=== PATIENT | female | born 1960 | race Caucasian/White ===

== ENCOUNTER 2021-10-07 09:25 | Emergency (ER) | payer OTHER, SELFPAY ==
[2021-10-07 09:30] VITALS: BP 167/86; PULSE 76; RESP 12; O2SAT 93
[2021-10-07 09:35] VITALS: BP 130/89; PULSE 69; RESP 18; TEMP 36.6; O2SAT 96; BMI 30.9
[2021-10-07 10:00] VITALS: BP 147/90; PULSE 73; RESP 14; O2SAT 93
--- NOTE | 2021-10-07 10:19 | ED_ITS ---
HPI - Chest Pain General Time Seen by Provider: 10:18 Date Seen: 10/07/21 Source: patient and RN notes reviewed Mode of arrival: ambulatory Limitations: no limitations History of Present Illness HPI narrative: Patient is a very pleasant 61-year-old female coming in with concern of possible underlying medical issues including but not limited to heart disease. She ad mits that she has really had diminished energy over the last 6 months an admit she was just ignoring it thinking it would go away. She works at [employer] in [place] unwell have been there for 20 years this fall, loves her job. Through talking to a customer she became concerned this might be heart disease or other issues. She notes when she walks remote the front of the store to the back of the store that she will does feel more tired, her leg muscles will feel tired and feels like she can not catch her breath at times. After getting up at home within a couple hours she is so tired that she feels like she could take a nap. She reports a heavy chest at times, like it is hard to try to catch her breath at times. She has had some nausea in the morning it increased burping a maybe a week or so or more, difficult for her to say if she really does not track or pay attention to her symptoms. On questioning there has been some dysphagia and again it is hard for her to tell. When it is there was there when it is not it is not. It will be with swallowing meat or breads. She has never had anything gets stuck. She admits that she has ongoing lightheadedness like she has always had a drinker to and she has not. She does have some occasional palpitations. She feels like she has heartburn but not reflux symptoms. She is on gabapentin in knows that that can make people feel lightheaded. She has a history of vertigo, has a history of a bad neck. She had colonoscopy at age 49 and has not had an update of this. She states she was given a Cologuard through the mail from [facility] and she thought it was weird that they would do this. She was worried that they may be giving out medical information or that this was wrong in through the test away. She was scheduled to see her physician 2 years ago at age 59 but it was a chance for her to have her grandson that day and that she went with her grandson. She admits her daughter is a nurse at cardiac unit in [facility] and has not told her daughter about this because she does not want her grandson to not come with her. Other than the irregular heartbeat she has never had any cardiac diagnosis. She has had no cough or cold symptoms, no vomiting with this. In the morning she will sometimes notes some blurry vision when she 1st gets up. She admits she uses cheaters. The blurry vision seems to be with close up, distant still seems to be fine. Reviewed with her that it is likely time to see Optometry. MD complaint: chest heaviness Pertinent past history: other (Reports workup for history of an irregular heartbeat) Onset (ago): unknown Timing of current episode: other (Difficult for the patient to quantify these things as noted above) Prior episodes: Yes Onset: during rest and during exertion Pain location: epigastric and subxiphoid Pain radiation: none Associated symptoms: nausea Treatment prior to arrival: none Related Data On Oral Contraceptives: No Home Medications Medication Instructions Recorded Confirmed escitalopram oxalate 10 mg tablet mg 10/07/21 gabapentin 300 mg capsule mg 10/07/21 Allergies Allergy/AdvReac Type Severity Reaction Status Date / Time trimethoprim Allergy Verified 10/07/21 09:34 Review of Systems Status of ROS Reports: 10 or more systems reviewed and unremarkable except as noted in History and below [facility] Medical History (Updated 10/07/21 @ 13:03 by Thu Mcginnis MD) Acute sensory neuropathy Asymptomatic PVCs Chronic pain Disc displacement, lumbar Generalized anxiety disorder Lichen sclerosus Obesity, unspecified Social History Smoking Status: Unknown if ever smoked Do you use any of these nicotine containing products: None How often do you have a drink containing alcohol: monthly or less How often do you have six or more drinks on one occasion: Never AUDIT-C Alcohol total score: 1 Non-prescribed substance use: denies use Exam Const Vital Signs, click to edit/add: Vital Signs - 24 hr 10/07/21 09:30 10/07/21 09:35 10/07/21 10:00 Temperature 97.8 F Pulse Rate [Left Pulse Oximeter] 76 69 73 Respiratory Rate 12 18 14 Blood Pressure [Left Upper Arm] 167/86 H 130/89 147/90 H Pulse Oximetry 93 96 93 10/07/21 10:30 10/07/21 11:30 10/07/21 13:28 Temperature Pulse Rate [Left Pulse Oximeter] 74 68 72 Respiratory Rate Blood Pressure [Left Upper Arm] 145/77 H 158/83 H 143/85 H Pulse Oximetry 95 97 95 Documenting provider has reviewed patient's vital signs: yes Common normals: no apparent distress, oriented x3, alert (Very pleasant and very talkative) and well nourished General appearance: cooperative, comfortable and well kempt HENMT Common normals: normocephalic, head/scalp atraumatic, hearing grossly normal bilaterally and external nose normal Head and scalp: normocephalic and atraumatic Face and sinus: normal facial exam Nose: external nose normal Mouth: oral and palatal mucosa normal Throat: posterior oropharynx normal Eye Common normals: PERRL, EOMs intact bilaterally, conjunctivae normal and no scleral icterus Conjunctiva: conjunctiva(e) normal Pupil: PERRL Neck & C-Spine Common normals: full ROM, no lymphadenopathy, supple, no meningeal signs, no JVD and thyroid normal Thyroid: thyroid normal Chest Common normals: inspection of chest normal and palpation of chest normal Resp Common normals: normal respiratory effort, no retractions, no use of accessory muscles and clear to auscultation bilaterally Auscultation: clear to auscultation bilaterally Cardio Common normals: no JVD, regular rate, regular rhythm, S1 normal heart sound, S2 normal heart sound, no gallops, no clicks and no murmurs Rate: regular rate Rhythm: regular rhythm Heart sounds: S1 normal and S2 normal GI Common normals: Normal to inspection, nondistended, normoactive bowel sounds present, soft to palpation, non-tender, no hepatosplenomegaly, no masses and no bruits Palpation: soft and no hepatosplenomegaly Extremity Common normals: normal to inspection, full ROM, normal capillary refill, no joint enlargement, no clubbing, cyanosis or edema, no calf tenderness and no pedal edema Neuro Common normals: oriented x3 Sensorium/orientation: alert (Very pleasant and very talkative) Meningeal signs: no meningeal signs Psych Appearance: well kempt Skin Common normals: no rashes or lesions noted General skin exam: no rashes or lesions noted Course Course Hospital Course: Reviewed with patient the differential is extensive here. Her initial EKG is reassuring but does not completely rule out heart disease. Reviewed with her that chest such as lung, GI including esophageal and gastric issues, possible gallbladder issues, possible cardiac issues could all be etiologies. Will get a full complement of labs, portable chest x-ray. We will monitor on cardiac monitoring to rule out any arrhythmia while she is here. She is certainly hemodynamically stable at this time. Reevaluation(s) Reevaluation #1: Have reviewed with patient her normal EKG, normal portable chest x-ray, normal labs including CBC comprehensive metabolic panel D-dimer troponin. This point I think she needs further evaluation outpatient. Have suggested to her she should consider having pain in the EGD done for the dysphagia symptoms, outpatient cardiac stress testing, consideration for maybe an overnight oximetry to see if there could be any development of any sleep apnea. Her primary care provider can help with any other further recommendations based on her symptoms as well. This time she is safe to discharge to home for further outpatient management. She understands if there is further concerns or any significant changes that we are happy to re-evaluate at any point. Time: 12:58 Vital Signs Vital signs: Initial Vital Signs Pulse Rate 76 10/07/21 09:30 Pulse Rhythm 10/07/21 09:30 Respiratory Rate 12 10/07/21 09:30 Blood Pressure 167/86 H 10/07/21 09:30 Blood Pressure Mean 113 10/07/21 09:30 Pulse Oximetry 93 10/07/21 09:30 Oxygen Delivery Method 10/07/21 09:30 Vital Signs Pulse Rate 76 10/07/21 09:30 Respiratory Rate 12 10/07/21 09:30 Blood Pressure 167/86 H 10/07/21 09:30 Pulse Oximetry 93 10/07/21 09:30 Temperature 97.8 F 10/07/21 09:35 Pulse Rate 72 10/07/21 13:28 Respiratory Rate 14 10/07/21 10:00 Blood Pressure 143/85 H 10/07/21 13:28 Pulse Oximetry 95 10/07/21 13:28 MDM - Chest Pain MDM Narrative Medical decision making narrative: Please see hospital course. Lab Data Attestation: I reviewed the patient's lab results. Labs: Lab Results 10/07/21 10/07/21 10/07/21 Range/Units 11:00 11:00 11:00 WBC 6.68 (4.50-11.00) K/uL RBC 4.24 (4.00-5.20) m/uL Hgb 13.5 (12.0-16.0) gm/dL Hct 41.1 (33.0-51.0) % MCV 97 (80-100) fL MCH 32 (26-34) pg MCHC 33 (32-36) gm/dL RDW Coeff of Vahid 11.9 (11.5-15.5) % Plt Count 237 (140-440) K/uL Neut % (Auto) 68.0 (42.0-72.0) % Lymph % (Auto) 24.4 (20-44) % Pratt % (Auto) 6.3 (0.0-11.0) % Eos % (Auto) 0.9 (0.0-7.0) % Baso % (Auto) 0.3 (0.0-3.0) % Neut # (Auto) 4.54 (1.7-7.0) K/uL Lymph # (Auto) 1.63 (0.90-2.90) K/uL Pratt # (Auto) 0.40 (0.00-0.90) K/UL Eos # (Auto) 0.06 (0.00-0.50) K/uL Baso # (Auto) 0.02 (0.00-0.30) K/uL Abs Immat Gran (auto) 0.01 (0.00-0.30) K/uL D-Dimer Quant (PE/DVT) 0.44 (0.00-0.50) ug/ml VBG pH (7.32-7.43) VBG pCO2 (40-50) mmHG VBG pO2 (25-47) mmHG VBG HCO3 (21-28) mmol/L Sodium 140 (135-149) mmol/L Potassium 4.0 (3.6-5.1) mmol/L Chloride 103 (96-114) mmol/L Carbon Dioxide 29 (20-32) mmol/L BUN 14 (7-30) mg/dL Creatinine 0.6 (0.5-1.5) mg/dL Estimated Creat Clear 50.37 Glucose 98 (60-115) mg/dL Lactate (0.5-1.9) mmol/L Calcium 9.4 (8.4-10.6) mg/dL Total Bilirubin 1.0 (0.1-1.5) mg/dL AST 24 (12-35) U/L ALT 25 (4-35) U/L Alkaline Phosphatase 69 (40-150) U/L Total Protein 7.2 (6.0-8.3) g/dL Albumin 4.2 (3.3-5.0) g/dL Lipase (23-300) U/L POC Troponin I (0.01-0.04) ng/ml 10/07/21 10/07/21 10/07/21 Range/Units 11:00 11:00 11:00 WBC (4.50-11.00) K/uL RBC (4.00-5.20) m/uL Hgb (12.0-16.0) gm/dL Hct (33.0-51.0) % MCV (80-100) fL MCH (26-34) pg MCHC (32-36) gm/dL RDW Coeff of Vahid (11.5-15.5) % Plt Count (140-440) K/uL Neut % (Auto) (42.0-72.0) % Lymph % (Auto) (20-44) % Pratt % (Auto) (0.0-11.0) % Eos % (Auto) (0.0-7.0) % Baso % (Auto) (0.0-3.0) % Neut # (Auto) (1.7-7.0) K/uL Lymph # (Auto) (0.90-2.90) K/uL Pratt # (Auto) (0.00-0.90) K/UL Eos # (Auto) (0.00-0.50) K/uL Baso # (Auto) (0.00-0.30) K/uL Abs Immat Gran (auto) (0.00-0.30) K/uL D-Dimer Quant (PE/DVT) (0.00-0.50) ug/ml VBG pH 7.394 (7.32-7.43) VBG pCO2 48 (40-50) mmHG VBG pO2 37.8 (25-47) mmHG VBG HCO3 29 H (21-28) mmol/L Sodium (135-149) mmol/L Potassium (3.6-5.1) mmol/L Chloride (96-114) mmol/L Carbon Dioxide (20-32) mmol/L BUN (7-30) mg/dL Creatinine (0.5-1.5) mg/dL Estimated Creat Clear Glucose (60-115) mg/dL Lactate 0.8 (0.5-1.9) mmol/L Calcium (8.4-10.6) mg/dL Total Bilirubin (0.1-1.5) mg/dL AST (12-35) U/L ALT (4-35) U/L Alkaline Phosphatase (40-150) U/L Total Protein (6.0-8.3) g/dL Albumin (3.3-5.0) g/dL Lipase 77 (23-300) U/L POC Troponin I 0.00 L (0.01-0.04) ng/ml Imaging Data Chest x-ray: Attestation: I have reviewed the pertinent imaging results. Radiologist's impression: Patient: PRECIOUS BLANC Facility:?[facility] Patient ID:?[id number] Site Patient ID:?[id number]. Site :?[id number] Study:?XRay Chest Portable 1 View-10/07/2021 11:13:30 AM Ordering Physician:Serina Andino Final Report: INDICATION: chest heaviness, fatigue TECHNIQUE: Chest 1 view COMPARISON: None FINDINGS: Cardiovascular and mediastinum: Mild tortuosity of the descending thoracic aorta. Cardiac silhouette upper limits of normal. Lungs and pleural spaces: Lungs are clear. No sign of infiltrate or mass. No sign of pleural effusion. No pneumothorax. Bones and soft tissues: No significant findings. IMPRESSION: No acute findings. Dictated by Marques Houser MD @ 10/07/2021 11:57:03 AM (Electronic Signature) ECG Data Attestation: I personally reviewed and interpreted this ECG as follows: (Sinus rhythm, 68 beats per minute. Single PVC seen. No evidence of any ischemic change or IL.) ECG interpretation date: 10/07/21 ECG interpretation time: 10:40 Prior ECG tracings: not available for review Core Measures AMI core measures followed: No (This is very likely not acute myocardial infarction or active ischemic dis) Critical Care Time Critical Care Time Critical Care Time: No Discharge Plan Discharge Clinical Impression: Chest pressure, Nausea, Lightheadedness Dysphagia Qualifiers: Dysphagia type: unspecified Qualified Code(s): R13.10 - Dysphagia, unspecified Patient Disposition: Home, Self-Care Condition: Stable Instructions: Chest Pain (ED), Acute Nausea and Vomiting (ED), Lightheadedness (ED), Dysphagia (ED) Additional Instructions: Need to get scheduled with your primary care provider MAO. We discussed having an EGD scheduled with your intermittent complaints of difficulty swallowing at times. I do also recommend that you have an outpatient cardiac stress test set up through your primary care provider. Other considerations that come to mind might be doing an overnight oximetry just to ensure that are not developing any sleep apnea symptoms. Other testing recommendations as per your primary care provider. Please note that if you have progressive or worsening symptoms, or becoming concerned with new symptomatology, we are certainly happy to re- evaluate you in the ER at any point for emergent conditions. Activity Level: Activity as Tolerated Prescriptions: No Action gabapentin 300 mg capsule 0RF escitalopram oxalate 10 mg tablet 0RF Stand Alone Forms: [employer] Info Instructions
[2021-10-07 10:30] VITALS: BP 145/77; PULSE 74; O2SAT 95
--- NOTE | 2021-10-07 10:42 | CRLHL7_ITS ---
For Patients: As a result of the Cures Act, medical imaging exams and procedure reports are released immediately into your electronic medical record. You may view this report before your referring provider. If you have questions, please contact your health care provider. INDICATION: chest heaviness, fatigue TECHNIQUE: Chest 1 view COMPARISON: None FINDINGS: Cardiovascular and mediastinum: Mild tortuosity of the descending thoracic aorta. Cardiac silhouette upper limits of normal. Lungs and pleural spaces: Lungs are clear. No sign of infiltrate or mass. No sign of pleural effusion. No pneumothorax. Bones and soft tissues: No significant findings. IMPRESSION: No acute findings. Dictated by Marques Houser MD @ 10/07/2021 11:57:03 AM (Electronically Signed)
[2021-10-07 11:09] LABS: HCO3 VBG 29 mmol/L (21-28); Lactate* 0.8 mmol/L (0.5-1.9); PCO2 VBG 48 mmHG (40-50); PO2 VBG 37.8 mmHG (25-47); pH VBG 7.394 (7.32-7.43)
[2021-10-07 11:17] LABS: Carbon Dioxide* 29 mmol/L (20-32); Chloride* 103 mmol/L (96-114); Glucose* 98 mg/dL (60-115); Sodium* 140 mmol/L (135-149)
[2021-10-07 11:18] LABS: Basophils Absolute Auto 0.02 K/uL (0.00-0.30); Basophils Percent Auto 0.3 % (0.0-3.0); Eosinophils Absolute Auto 0.06 K/uL (0.00-0.50); Eosinophils Percent Auto 0.9 % (0.0-7.0); Hematocrit 41.1 % (33.0-51.0); Hemoglobin* 13.5 gm/dL (12.0-16.0); Immature Granulocytes Abs Auto 0.01 K/uL (0.00-0.30); Lymphocytes Absolute Auto 1.63 K/uL (0.90-2.90); Lymphocytes Percent Auto 24.4 % (20-44); Mean Corpuscular HGB Conc 33 gm/dL (32-36); Mean Corpuscular Hemoglobin 32 pg (26-34); Mean Corpuscular Volume 97 fL (80-100); Monocytes Percent Auto 6.3 % (0.0-11.0); Neutrophils Absolute Auto 4.54 K/uL (1.7-7.0); Platelet Count* 237 K/uL (140-440); RDW Coefficient of Variation % 11.9 % (11.5-15.5); Red Blood Count 4.24 m/uL (4.00-5.20); White Blood Count* 6.68 K/uL (4.50-11.00)
[2021-10-07 11:19] LABS: Slide Review Reflex No
[2021-10-07 11:30] VITALS: BP 158/83; PULSE 68; O2SAT 97
[2021-10-07 11:41] LABS: D Dimer Quantitative* 0.44 ug/ml (0.00-0.50)
[2021-10-07 12:47] LABS: Albumin* 4.2 g/dL (3.3-5.0)
[2021-10-07 12:50] LABS: Alkaline Phosphatase* 69 U/L (40-150); Aspartate Amino Transferase* 24 U/L (12-35); Creatinine* 0.6 mg/dL (0.5-1.5); Est. Creatinine Clearance* 50.37; Estimated Glomerular Filt Rate 101.42; Lipase* 77 U/L (23-300); Total Protein* 7.2 g/dL (6.0-8.3)
[2021-10-07 12:51] LABS: Alanine Aminotransferase* 25 U/L (4-35); Blood Urea Nitrogen* 14 mg/dL (7-30); Calcium* 9.4 mg/dL (8.4-10.6)
[2021-10-07 13:28] VITALS: BP 143/85; PULSE 72; O2SAT 95
== END 2021-10-07 13:29 | disposition home or self-care (01) ==
PROVIDERS: Emergency Provider Family Medicine; PCP Nurse Practitioner Family
DX: R07.89 Other chest pain (principal); R42 Dizziness and giddiness
CPT/HCPCS: 36415; 71045; 80053; 82803; 83605; 83690; 84484; 85025; 85379; 93005; 99284; 99285

== ENCOUNTER 2024-06-13 18:16 | Emergency (ER) | payer BC, SELFPAY ==
[2024-06-13 19:08] VITALS: BP 146/87; PULSE 73; RESP 14; TEMP 36.4; O2SAT 97; BMI 32.6
--- NOTE | 2024-06-13 21:34 | ED_ITS ---
HPI - Eye Problem General Chief complaint: Eye Problems Stated complaint: Double vision Time Seen by Provider: 06/13/24 21:11 History of Present Illness HPI Narrative: This 63-year-old female comes in reporting diaper low P a. She has had symptoms of dye pool P of for the past week or so. She does report a headache on her left side. She also has some chronic neck pain and goes to a chiropractor occasionally and does get adjusted in her neck. She does not report any other neurologic deficits. She states that she did go to an anthropology professor who made a follow-up appointment with an farmer diversified crops which will occur in a couple weeks from now. She comes here to rule out stroke or other more worrisome cause for these symptoms. She states that she can correct the double vision sometimes by tipping her head to the right and worsen the dye pool P a by tilting to the left. She also reports some visual changes that occur that a sound like scintillating scotoma related to her headaches. Related Data Home Medications ?Medication ?Instructions ?Recorded ?Confirmed escitalopram oxalate 10 mg tablet 10 mg PO HS 10/07/21 06/13/24 gabapentin 300 mg capsule 300 mg PO BID 10/07/21 06/13/24 Previous Rx's ?Medication ?Instructions ?Recorded prednisone 10 mg tablets in a dose See Rx Instructions PO .COMPLEX 06/13/24 pack #21 ea Allergies Allergy/AdvReac Type Severity Reaction Status Date / Time trimethoprim Allergy Verified 10/07/21 09:34 Review of Systems Status of ROS: Reports: 10 or more systems reviewed and unremarkable except as noted in History and below Narrative: Constitutional: No fevers, no weight gain or loss. Eyes: No discharge. Diaper low P a as described above. HENT: No congestion, no sore throat, no ear pain. Cardiovascular: No chest pain, no palpitations. Respiratory: No shortness of breath, no wheezes, no cough. Gastrointestinal: No abdominal pain, no vomiting, no diarrhea. Genitourinary: No dysuria, no hematuria. Musculoskeletal: Normal range of motion. Skin: No rashes, no pruritis. Neurological: No dizziness, weakness, sensory change, speech change. Endo/Heme/Allergies: No bruising or bleeding. No polydipsia. Pysch: no suicidality, no anxiety, no insomnia. All other systems reviewed and are negative. PFSH PFS Medical History (Updated 06/13/24 @ 22:06 by Romeo Luz MD) Lichen sclerosus ?L90.0 - Lichen sclerosus et atrophicus (ICD-10) Generalized anxiety disorder ?F41.1 - Generalized anxiety disorder (ICD-10) Acute sensory neuropathy ?G60.8 - Other hereditary and idiopathic neuropathies (ICD-10) Chronic pain ?G89.29 - Other chronic pain (ICD-10) Disc displacement, lumbar ?M51.26 - Other intervertebral disc displacement, lumbar region (ICD-10) Obesity, unspecified ?E66.9 - Obesity, unspecified (ICD-10) Asymptomatic PVCs ?I49.3 - Ventricular premature depolarization (ICD-10) Social History Smoking Status: Unknown if ever smoked Do you use any of these nicotine containing products: None How often do you have a drink containing alcohol: monthly or less How often do you have six or more drinks on one occasion: Never AUDIT-C Alcohol total score: 1 Non-prescribed substance use: denies use Exam Narrative: Exam Narrative: Constitutional: Well-developed, well-nourished, no acute distress. HEENT: Normocephalic, atraumatic. Eyes appear conjugate and pupils are equal and reactive to light. Neck: Normal range of motion. Nontender. Supple. Heart: Regular. No murmurs. Normal rate. Intact distal pulses. Lungs: Clear to auscultation. No chest discomfort. No wheezes, rhonchi, or rales. Abdomen: Normal bowel sounds. Nontender. No rebound tenderness. Genitalia: Deferred. Back: No midline tenderness. Normal range of motion. Extremities: Normal range of motion. No injury. Skin: Intact. No rash. Warm. No erythema or pallor. Neurologic: No altered sensation. No weakness. Alert and oriented. No facial asymmetry. Tongue is midline. [id number] is normal. No pronator drift. Director Of Sales strength is equal bilaterally. Able to raise each leg from the bed. Psychiatric: No suicidality. No anxiety or depression. No insomnia. Nursing notes and vitals signs are reviewed. Const: Vital Signs, click to edit/add: Vital Signs - 24 hr 06/13/24 19:08 Temperature 97.6 F Pulse Rate [Pulse Oximeter] 73 Respiratory Rate 14 Blood Pressure [Ri ght Upper Arm] 146/87 H Pulse Oximetry 97 Oxygen Delivery Me thod Room Air Course Vital Signs Vital signs: Initial Vital Signs Temperature 97.6 F 06/13/24 19:08 Temperature Source Temporal Artery Scan 06/13/24 19:08 Pulse Rate 73 06/13/24 19:08 Pulse Rhythm Regular 06/13/24 19:08 Respiratory Rate 14 06/13/24 19:08 Blood Pressure 146/87 H 06/13/24 19:08 Blood Pressure Mean 106 H 06/13/24 19:08 Blood Pressure Position Sitting 06/13/24 19:08 Pulse Oximetry 97 06/13/24 19:08 Oxygen Delivery Method Room Air 06/13/24 19:08 Vital Signs Temperature 97.6 F 06/13/24 19:08 Pulse Rate 73 06/13/24 19:08 Respiratory Rate 14 06/13/24 19:08 Blood Pressure 146/87 H 06/13/24 19:08 Pulse Oximetry 97 06/13/24 19:08 Oxygen Delivery Method Room Air 06/13/24 19:08 Temperature 97.6 F 06/13/24 19:08 Pulse Rate 73 06/13/24 19:08 Respiratory Rate 14 06/13/24 19:08 Blood Pressure 146/87 H 06/13/24 19:08 Pulse Oximetry 97 06/13/24 19:08 Oxygen Delivery Method Room Air 06/13/24 19:08 MDM - Eye Problem MDM Narrative Medical decision making narrative: This patient is reporting symptoms of diplopia. She does have a suspicion that it may be related to her gabapentin as this can be an adverse effect from gabapentin. Her neurologic exam is completely normal. She does have follow-up appointment with an farmer diversified [employer]. I did order a CT scan of her head but later she decided against this but would be glad to take a steroid. She did receive an oral dose of dexamethasone and I provided a prescription for Medrol Dosepak. She is instructed to follow-up with her primary physician and farmer [employer]. Discharge Plan Discharge Clinical Impression: Diplopia Patient Disposition: Home, Self-Care Condition: Unchanged Additional Instructions: Take medication as prescribed. Follow up with farmer [employer] and primary physician. Return if worsening. Prescriptions: New prednisone 10 mg tablets,dose pack See Rx Instructions .ROUTE .COMPLEX Qty: 21 0RF Rx Instructions: orally per package directions No Action gabapentin 300 mg capsule 300 mg PO BID Rx Instructions: Has been taking 2 capsules in AM and 1 capsule at PM; self-dosed. escitalopram oxalate 10 mg tablet 10 mg PO HS Follow Up/Referrals: Chacha Brennan CNP, ROBOT TECHNICIAN [Primary Care Provider] - Stand Alone Forms: [employer] Info Instructions
--- OUTSIDE RECORDS SUMMARY | 2024-06-13 21:41 | XMS_ITS | Clinical Summary ---
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 0 4 Active naproxen (ALEVE) 220 mg tablet 2 tabs twice a day with 1 ES tylenol 0 7 Active acetaminophen (TYLENOL EXTRA STRGTH) 500 mg tablet Take 1 tablet by mouth every 6 hours. Max acetaminophen dose: 4000mg in 24 hrs. 0 0 Active escitalopram oxalate (LEXAPRO) 10 mg tabletIndicati ons:Generalize d anxiety disorder Take 1 Tablet (10 mg) by mouth once daily in the morning. 100 Tablet 3 4 Active gabapentin (NEURONTIN) 300 mg capsuleIndicat ions:Periphera l sensory neuropathy Take 1-2 Capsules (300-600 mg) by mouth three times daily. 600 Capsule 3 4 Active Active Problems Problem Noted Date Diagnosed Date Prediabetes 12/17/2023 Peripheral sensory neuropathy 06/21/2021 Chronic midline low back pain with left-sided sc iatica 04/01/2016 Lichen sclerosus et atrophicus 03/01/2013 Equilibrium disorder 12/05/2011 Issue of repeat prescriptions 06/04/2010 Overview (06/04/2010): alprazolam, 0.25mg oral daily with occaionsal prn on file and signed 01/02/2007 . Designated [facility]: [facility] Prescribing physician: Bimal Diagnosis: anxiety , needs to be seen every 6 months. Screen for colon cancer 02/05/2010 Overview (02/05/2010): Colonoscopy 01/2010 normal repeat in 10 years Lateral epicondylitis of elbow 07/31/2009 Overview (07/31/2009): ~ left elbow injection Mar 2008: long lasting improvement. ~ Right elbow injection July 2009. Obesity, unspecified 02/06/2009 PVC's (premature ventricular contractions) 11/29 Overview (02/07/2019): Saw Cardiology. Neg work up. She doesn't have sxs from them. Tried fish oil 2 gm. Generalized anxiety disorder 10/14/2005 Overview (02/15/2015): alprazolam, 0.25mg oral daily with occaionsal prn on file and signed 01/02/2007 . Designated pharmacy: [facility] Prescribing physician: Bimal Diagnosis: anxiety , needs to be seen every 6 months. 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 Maravilla. Resolved Problems Problem Noted Date Diagnosed Date Resolved Date Diabetes mellitus screening 12/17/2023 12/17/2023 Chronic bronchitis, unspecif ied chronic bronchitis type 06/21/2021 06/21/2021 Postmenopausal HRT (hormone replacement therapy) 02/06/2009 12/17/2023 Diarrhea 06/11/2006 01/02/2007 Abdominal pain, periumbilic 06/11/2006 01/02/2007 Elevated sedimentation rate 06/11/2006 01/02/2007 Encounters Date Type Department Care Team Description 06/13/2024 Nurse Triage [facility] [address] [place], [place] [id number] Chacha Brennan, JOHANNA Vision Change from Last 3 Months Immunizations Immunization Administration Dates Next Due AMB Influenza, IIV3 (Age >=3 years)(Flu Clinic Only) 01/21/2013,12/31/2011 AMB Influenza, IIV4 PF (=>6 mos Flulaval,Fluzone Fluarix)(Flu Clinic Only) 11/25/2018 HepA-HepB (Twinrix) 01/06/2014,08/12/2013,2013 INFLUENZA, IIV3 PF (AGE >= 6 MO) 12/22/2023 Influenza RIV4 (Age 18+ Year s) PRESERV FREE 01/01/2022,11/22/2019 Influenza Virus, Unspecified 12/05/2013 Influenza, IIV3 (Age >=3 years) 11/14/19 16,12/31/2008,01/18/2008,2006 Influenza, IIV4 02/12/2023,,12/11/2019,2018,11/20/2017,11/22/2016 Tdap 10/27/2006 Tdap, Unspecified 11/29/2015 Zoster (Shingrix-RZV, recombinant) 08/19/2017,,06/12/2017 Family History Medical History Relation Name Comments Diabetes Father Hypertension Father Cancer-breast Maternal Grandmother Other Maternal Grandmother uterine cancer, but from stroke complications- pnuemonia Stroke Maternal Grandmother Diabetes Mother Heart Disease Mother Other Mother Lung cancer Sta ge 3B Relation Name Status Comments Father Alive Maternal Grandfather Maternal Grandmother Mother Paternal Grandfather Paternal Grandmother Social History Tobacco Use Types Packs/Day Years Used Date Smoking Tobacco: Never Smokeless Tobacco: Never Tobacco Cessation:Counseling Given: Yes Comments:Parents both smoked in the home growing up Alcohol Use Standard Drinks/Week Comments Yes 0 (1 standard drink = 0.6 oz pur e alcohol) rare PHQ-2 Answer Date Recorded PHQ-2 TOTAL SCORE 2 12/22/2023 Social Connections Answer Date Recorded Do you often feel lonely or isolated from those around you? 0 08/18/2023 Financial Resource Strain Answer Date R ecorded Difficulty of Paying Living Expenses 3 08/18/2023 Difficulty of Paying Living Expenses Not on file 08/18/2023 Food Insecurity Answer Date Recorded Do you worry your food will run out before you are able to buy more? 1 08/18/2023 Transportation Needs Answer Date Record ed Does lack of transportation keep you from medica l appointments? 1 08/18/2023 Does lack of transportation keep you from work, meetings or getting things that you need? 1 08/18/2023 Housing Stability Answer Date Recorded What is your housing situation today? 1 08/18/2023 Utilities Answer Date Recorded Do you have trouble paying f or utilities (for example, heat, electricity, water, phone)? 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 Gender Identity Not on file Sexual Orientation Not on file Obstetrics History Para Term AB IAB SAB Ectopic Multiple Livin g Live Births 4 3 2 1 1 0 1 0 0 2 4 Date Outcome GA Total Labor Labor/2nd/3rd Weight Sex Type Anes PTL Hazel A1 A5 Name Clin 1981 26w 0d M Vag Livin g Comments:lived 2 days, 26 weeks 1982 SAB SPONTAN EOUS Decea sed 1983 Term 39w 0d F Vag Livin g 1986 Term 39w 0d M C-Secti on Livin g Last Filed Vital Signs Vital Sign Reading Time Taken Comments Blood Pressure 130/80 02/05/2024 1:56 PM RENT AND HOUSING INVESTIGATOR Pulse 86 02/05/2024 1:56 PM RENT AND HOUSING INVESTIGATOR Temperature 37.3 C (99.1 F) 02/12/2021 6:55 PM RENT AND HOUSING INVESTIGATOR Respiratory Rate 16 10/09/2020 1:56 PM CDT Oxygen Saturation 96% 02/05/2024 1:56 PM RENT AND HOUSING INVESTIGATOR Inhaled Oxygen Concentration - - Weight 87.5 kg (193 lb) 02/05/2024 1:56 PM RENT AND HOUSING INVESTIGATOR Height 160.2 cm (5' 3.07) 12/22/2023 10:58 AM C DT Body Mass Index 34.11 12/22/2023 10:58 AM CDT Plan of Treatment Health Maintenance Due Date Last Done Comments Pneumococcal series for age 50+ (1 of 2 - PCV) 08/03/1978 COVID-19 vaccine series ( - 2023- season) 2023 04/02/2021, 07/25/2020, 07/04/2020 BMI (ht and wt on same day) for age 18+ 12/21/2024 12/22/2023, 11/18/2022, 04/17/2022, Additional history exists Depression screening for age 12+ 12/21/2024 12/22/2023, 11/18/2022, 04/17/2022, Additional history exists Mammogram for age 45-75 12/21/2024 12/22/19 24, 11/18/2022, 04/12/2021, Additional history exists Pap test for age 21-65 11/18/2025 , 11/18/2022, 02/07/2019, Additional history exists Tetanus booster 11/28/2025 11/29/2015, 10/27/2006 Fecal testing sDNA-FIT (Cologuard) for age 45-75 01/03/2027 01/04/2024 Lipids for age 45-75 12/21/2028 12/22/2023, 11/18/2022, 04/12/2021, Additional history exists RSV vaccine for adults or (1 - 1-dose 75+ series) 08/03/2034 HIV for age 15-65 11/18/2042 Postponed from 08/03/1974 (Patient discretion) Hepatitis C screening for age 18-79 Completed 07/14/2013 Tdap Completed 11/29/2015, 10/27/2006 Zoster (shingles) series for age 50+ Completed 08/19/2017, 07/28/2017, 06/12/2017 Influenza Vaccine Completed 12/22/2023, , 01/01/2022, Additional history exists Procedures Procedure Name Priority Date/Time Associated Diagnosis Comments SDNA-FIT EXTERNAL (COLOGUARD) Routine 01/04/2024 7:50 AM CDT Screen for colon cancer XR MAMMO BETH BILAT SCREEN Routine 12/22/2023 12:55 PM CDT Visit for screening mammogram LIPID PANEL W REFLEX MEASURED LDL Routine 12/22/2023 11:23 AM CDT Mixed hyperlipidemia HEART NURSE THIN PREP PAP SCREEN IMAGED Routine 11/18/2022 10:30 AM CDT Pap smear for cervical cancer screening ANTI HCV Routine 07/14/2013 11:57 AM CDT Need for hepatitis C screening test from Last 3 Months or Most Recently Relevant to Health Maintenance Results * SDNA-FIT EXTERNAL (COLOGUARD) (01/04/2024 7:50 AM CDT) NONINV COLON CA DNA+OCC BLD SCRN STL-IMP Negative Negative 01/09/2024 4:56 PM CDT [facility] (CLIA #:[id number]) Comment: NEGATIVE TEST RESULT. A negative Cologuard result indicates a low likelihood that a colorectal cancer (CRC) or advanced adenoma (adenomatous polyps with more advanced pre-malignant features) is present. The chance that a person with a negative Cologuard test has a colorectal cancer is less than 1 in 1500 (negative predictive value >99.9%) or has an advanced adenoma is less than 5.3% (negative predictive value 94.7%). These data are based on a prospective cross-sectional study of 10,000 individuals at average risk for colorectal cancer who were screened with both Cologuard and colonoscopy. (Pedro Sol al, N Engl J Med 2014;370(14):4581-8014) The normal value (reference range) for this assay is negative. COLOGUARD RE-SCREENING RECOMMENDATION: Periodic colorectal cancer screening is an important part of preventive healthcare for asymptomatic individuals at average risk for colorectal cancer. Following a negative Cologuard result, the [place] [employer] and U.S. Multi-Society Task Force screening guidelines recommend a Cologuard re-screening interval of 3 years. References: [place] [employer] Guideline for Colorectal Cancer Screening: https://www.cancer.org/cancer/ndyqt-ahsvyf-njiwlr/niovdjtik-tagovahhm-libexvg/ac s-rec ommendations.html.; Adrian DK, Sonja CR, Yanira HusseinK, Colorectal Cancer Screening: Recommendations for Physicians and Patients from the U.S. Multi-Society Task Force on Colorectal Cancer Screening , Am J Gastroenterology 2017; 112:4782-2252. TEST DESCRIPTION: Composite algorithmic analysis of stool DNA-biomarkers with hemoglobin immunoassay. Quantitative values of individual biomarkers are not reportable and are not associated with individual biomarker result reference ranges. Cologuard is intended for colorectal cancer screening of adults of either sex, 45 years or older, who are at average-risk for colorectal cancer (CRC). Cologuard has been approved for use by the U.S. FDA. The performance of Cologuard was established in a cross sectional study of average-risk adults aged 50-84. Cologuard performance in patients ages 45 to 49 years was estimated by sub-group analysis of near-age groups. Colonoscopies performed for a positive result may find as the most clinically significant lesion: colorectal cancer [4.0%], advanced adenoma (including sessile serrated polyps greater than or equal to 1cm diameter) [20%] or non- advanced adenoma [31%]; or no colorectal neoplasia [45%]. These estimates are derived from a prospective cross-sectional screening study of 10,000 individuals at average risk for colorectal cancer who were screened with both Cologuard and colonoscopy. (Pedro Sol al, N Engl J Med 2014;370(14):4853-7978.) Cologuard may produce a false negative or false positive result (no colorectal cancer or precancerous polyp present at colonoscopy follow up). A negative Cologuard test result does not guarantee the absence of CRC or advanced adenoma (pre-cancer). The current Cologuard screening interval is every 3 years. ([place] [employer] and U.S. Multi-Society Task Force). Cologuard performance data in a 10,000 patient pivotal study using colonoscopy as the reference method can be accessed at the following location: www.Sendmybag/results. Additional description of the Cologuard test process, warnings and precautions can be found at www.PolyServerd.com. Stool specimen (specimen) (Rectum) 01/04/2024 7:50 AM CDT 01/05/2024 8:00 AM CDT Chacha Brennan PR INTERN URINE Final Res ult [facility] (CLIA #:[id number]) [place] [address], [place] [phone] * XR MAMMO BETH BILAT SCREEN (12/22/2023 12:55 PM CDT) Anatomical Region Laterality Modality BREASTS, Breast Left, Breast Right Bilateral Mammography Impressions 12/23/2023 4:04 PM CDT There is no radiographic evidence for malignancy. Recommend annual mammograms. MAMMOGRAM ASSESSMENT: ACR 1 Negative PATIENTS: You will also receive a letter with your examination results in an easy to read format. If you have questions about your results, please contact your referring provider. Narrative 12/23/2023 4:04 PM CDT For Patients: As a result of the Century Cures Act, medical imaging exams and procedure reports are released immediately into your electronic medical record. You may view this report before your referring provider. If you have questions, please contact your health care provider. XR MAMMO BETH BILAT SCREEN [[id number]] CLINICAL HISTORY: This is an asymptomatic 63 y.o. patient. INDICATION FOR EXAM: Mammogram Screening. TECHNIQUE: CC & MLO views were obtained. This study was evaluated with the assistance of Computer-Aided Detection. Breast Tomosynthesis was used in interpretation. COMPARISON FILM: Yes 11/18/22 [facility] 04/12/21 2 Minutes FINDINGS: The breasts are almost entirely fatty. There are no dominant masses, suspicious micro calcifications or areas of architectural distortion. Chacha Brennan NP MAMMO Final Res ult * (ABNORMAL) LIPID PANEL W REFLEX MEASURED LDL (12/22/2023 11:23 AM CDT) CHOLESTEROL, TOTAL 236(H) <200 mg/dL [facility] HDL CHOLESTEROL 63 > OR = 50 mg/dL [facility] TRIGLYCERIDES 145 <150 mg/dL [facility] LDL-CHOLESTEROL 146(H) mg/dL (calc) [facility] Comment: Reference range: <100 Desirable range <100 mg/dL for primary prevention; <70 mg/dL for patients with CHD or diabetic patients with > or = 2 CHD risk factors. LDL-C is now calculated using the Hazel calculation, which is a validated novel method providing better accuracy than the Friedewald equation in the estimation of LDL-C. Rober SS et al. BLANCA. 2013;310(19): 6770-5922 (http://education.Enovex/faq/FQH578) CHOL/HDLC RATIO 3.7 <5.0 (calc) [facility] NON HDL CHOLESTEROL 173(H) <130 mg/dL (calc) [facility] Comment: For patients with diabetes plus 1 major ASCVD risk factor, treating to a non-HDL-C goal of <100 mg/dL (LDL-C of <70 mg/dL) is considered a therapeutic option. Blood BLOOD SPECIMEN / Unknown 12/22/2023 11:23 AM CDT 12/22/2023 11:24 AM CDT Chacha Brennan NP CHEMISTRY Final Res ult [facility] [address] [place] [address], [facility] [address] [place] [address] * HEART NURSE THIN PREP PAP SCREEN IMAGED (11/18/2022 10:30 AM CDT) Case Report Gynecologic Cytology Report Case: [id number] Authorizing Provider: Chacha Brennan NP Collected: 11/18/2022 1030 Ordering Location: [facility] Received: 11/18/2022 1048 Clinic First Screen: Sarah Pichardo Specimen: HEART NURSE ThinPrep Vial Screening, Cervical 11/25/2022 6:32 AM CDT [facility] INTERPRETATION /RESULT NEGATIVE FOR INTRAEPITHELIAL LESION OR MALIGNANCY (NIL) (none) 11/25/2022 6:32 AM CDT [facility] IMEN ADEQUACY Satisfactory for evaluation Endocervical cells cannot be evaluated due to severe atrophy Obscuring Inflammation 11/25/2022 6:32 AM CDT [facility] HPV REQUEST HPV and PAP 11/25/2022 6:32 AM CDT [facility] Date of LMP Postmenopausal 6:32 AM CDT [facility] Last Pap Date 02/07/19 11/25/2022 6:32 AM CDT [facility] Last Pap Result NIL 11/25/2022 6:32 AM CDT [facility] Abnormal Pap or Olean Bx in last 5 years No 11/25/2022 6:32 AM CDT [facility] Menstrual Status Postmenopausal 11/25/2022 6:32 AM CDT [facility] Olean Bx Done Today No 11/25/2022 6:32 AM CDT [facility] Additional Information None given 11/25/2022 6:32 AM CDT [facility] Comment: Cytology is screened at [facility] - [address], [place] [address] and [facility] - [address] [place] [address] and [facility] - [address] [place] [address] Interpreted at [facility] - [address], [place] [address] Automated Review Failed 11/25/2022 6:32 AM CDT [facility] Comment:Processing failed, m anual screening required. ThinPrep Imaging System, [employer] ANCILLARY TESTING HEART NURSE HPV Ordered, Please see separate report 11/25/2022 6:32 AM CDT [facility] Note The pap test is a screening technique, not a diagnostic procedure. It is used primarily to screen for squamous cancers and precursor lesions. Published studies have shown that it is subject to both false negative and false positive results. The pap test should not be used as the sole means to diagnose or exclude pre-malignant and malignant lesions. 11/25/2022 6:32 AM CDT [facility] Other (Cervical) Non-Blood / Unknown 11/18/2022 10:30 AM CDT 11/18/2022 10:48 AM CDT us Chacha Brennan NP PATHOLOGY/CYTOLOGY Final Result [facility] [address] [place] [address], [place] * ANTI HCV [[id number]] (07/14/2013 11:57 AM CDT) HEPATITIS C ANTIBODY Non-Reacti ve Non-Reacti ve 07/14/2013 8:48 PM CDT [facility] Blood specimen (specimen) BLOOD SPECIMEN / Unknown Venipuncture / Unknown 07/14/2013 11:57 AM CDT 07/14/2013 11:57 AM CDT Narrative [facility] - 07/14/2013 8:48 PM CDT Antibodies to HCV not detected; does not exclude the possibility of exposure to HCV. Flor Wallis MD SEND OUTS Melina l Result [facility] [address] [place] [address], [place] from Last 3 Months or Most Recently Relevant to Health Maintenance Insurance [facility] Advance Directives * Full Code (Latest Code Status on File) Date Activated Date Inactivated Comments 05/23/2005 2:56 PM 05/26/2005 11:28 PM * Full Code Date Activated Date Inactivated Comments 05/23/2005 10:27 AM 05/23/2005 2:56 PM Care Teams Manufactured Buildings Repairer Relationship Specialty [place] [address] [place] [address] PCP - General Nurse Practitioner 06/21/21
[2024-06-13] MEDS: dexAMETHasone 10 MG/ML inj PO (22:10)
--- NOTE | 2024-06-13 22:22 | ED.NURSE ---
Called in rx to [facility] per Pt request, left voicemail. Called [facility] and left voicemail to cancel rx.
--- NOTE | 2024-06-14 08:15 | ED.NURSE ---
[facility] pharmacy called to clarify prednisone rx, advised pharmacy that based on physician dictation that rx was to be Medrol dosepack.
== END 2024-06-13 22:13 | disposition home or self-care (01) ==
PROVIDERS: Emergency Provider Emergency Medicine Emergency Medical Services; PCP Nurse Practitioner Family
DX: H53.2 Diplopia (principal)
CPT/HCPCS: 99283; 99284; J1100